=== PATIENT | male | born 1985 | race Caucasian/White ===

== ENCOUNTER 2020-09-23 09:02 | Outpatient (CLI) | payer OTHER, SELFPAY | END 2020-09-23 09:03 | disposition home or self-care (01) | LOC: ANHCOVIDVC 09:02 | PROVIDERS: PCP Emergency Medicine | DX: Z23 Encounter for immunization (principal) | CPT/HCPCS: 0001A; 91300 ==

== ENCOUNTER 2020-10-14 08:58 | Outpatient (CLI) | payer OTHER, SELFPAY | END 2020-10-14 08:59 | disposition home or self-care (01) | LOC: ANHCOVIDVC 08:58 | PROVIDERS: PCP Emergency Medicine | DX: Z23 Encounter for immunization (principal) | CPT/HCPCS: 0002A; 91300 ==